=== PATIENT | female | born 1960 | race Caucasian/White ===

== ENCOUNTER 2017-08-17 13:56 | Emergency (ER) | payer OTHER, SELFPAY | END 2017-08-17 14:25 | disposition home or self-care (01) | LOC: ERS 13:56 | DX: J01.90 Acute sinusitis, unspecified (principal); J44.9 Chronic obstructive pulmonary disease, unspecified; Z87.891 Personal history of nicotine dependence | CPT/HCPCS: 99283 ==

== ENCOUNTER 2019-10-15 12:20 | Emergency (ER) | payer OTHER, SELFPAY ==
--- NOTE | 2019-10-15 12:57 | RAD ---
RADIOGRAPH CHEST 1 VIEW: DATE: 10/15/2019 HISTORY: 59-year-old female with dyspnea FINDINGS: There is hyperinflation of the lungs, consistent with COPD. There is no evidence of airspace density, cardiomegaly, pulmonary edema, or pneumothorax. The lateral costophrenic angles are not effaced. IMPRESSION: 1) No acute pulmonary findings. 2) emphysema.
[2019-10-15 13:24] LABS: #Basophils 0.1 thou/uL (0.0-0.2); #Eosinphils 0.1 thou/uL (0.0-0.7); #Lymphocytes 2.3 thou/uL (1.20-3.40); #Monocytes 0.8 thou/uL (0.11-0.59); #Neutrophils 7.1 thou/uL (1.40-6.50); %Eosinophils 1.3 % (0.0-10.0); %Lymphocytes 22.3 % (21.0-51.0); %Monocytes 7.4 % (0.0-10.0); %Neutrophils 68.1 % (42.0-75.0); Hemoglobin 13.5 g/dL (12.0-16.0); Mean Corpuscular Hemoglobin 31.6 pg (27.0-31.0); Mean Corpuscular Volume 92.9 fL (78.0-98.0); Mean Platelet Volume 7.7 fL (7.4-10.4); Platelet Count 326 thou/uL (130-400); Red Blood Cell (RBC) Count 4.26 mill/uL (4.20-5.40); White Blood Cell (WBC) Count 10.4 thou/uL (4.8-10.8)
[2019-10-15 13:46] LABS: ALT (SGPT) 12 U/L (8-55); AST (SGOT) 18 U/L (5-34); Albumin 4.5 g/dL (3.5-5.0); Alkaline Phosphatase 61 U/L (40-110); Anion Gap 14 mmol/L (10-20); BUN (Urea Nitrogen) 9 mg/dL (9.8-20.1); Bilirubin, Total 0.3 mg/dL (0.2-1.2); Calc. Creatinine Clearance 0 mL/min (70-130); Calcium 9.2 mg/dL (7.8-10.44); Carbon Dioxide 22 mmol/L (22-29); Chloride 106 mmol/L (98-107); Estimated GFR-MDRD 77; Globulin 2.7 g/dL (2.4-3.5); Glucose 92 mg/dL (70-105); Lipase 4 U/L (8-78); Potassium 3.9 mmol/L (3.5-5.1); Protein, Total 7.2 g/dL (6.0-8.3); Sodium 138 mmol/L (136-145)
[2019-10-15] MEDS ORDERED: Albuterol 200 PUFF (6.7GM INHALER) ONE (13:54)
[2019-10-15] MEDS ORDERED: Magnesium 2 GM/50 ML BAG (IN WATER) ONE (13:55)
[2019-10-15] MEDS ORDERED: hydrOXYzine 25 MG TAB ONE (13:55)
[2019-10-15] MEDS ORDERED: methylPREDNISolone Sod Succ/PF 125 MG/2 ML VIAL ONE (13:55)
[2019-10-15] MEDS ORDERED: Lorazepam 2 MG/ML VIAL ONE (15:16)
== END 2019-10-15 16:04 | disposition home or self-care (01) ==
LOC: ERS 12:20
DX: J44.1 Chronic obstructive pulmonary disease with (acute) exacerbation (principal); F41.9 Anxiety disorder, unspecified; F17.210 Nicotine dependence, cigarettes, uncomplicated; B19.20 Unspecified viral hepatitis C without hepatic coma; Z79.51 Long term (current) use of inhaled steroids
CPT/HCPCS: 36415; 71045; 80053; 83605; 83690; 83880; 84484; 85025; 87040; 93005; 94664; 94760; 96365; 96375; J2060; J2930; J3475

== ENCOUNTER 2020-08-24 01:43 | Observation (INO) | payer OTHER, SELFPAY ==
[2020-08-24] MEDS ORDERED: Promethazine HCl 25 MG/ML VIAL ONE (02:01)
[2020-08-24] MEDS ORDERED: Morphine 4 MG/ML VIAL ONE (02:01)
[2020-08-24 04:44] VITALS: BMI 16.9
[2020-08-24] MEDS ORDERED: Polyethylene Glycol 3350 17 GM Packet PO PRN (09:15)
[2020-08-24] MEDS ORDERED: Fleet Enema 133 ML BOT PR SCH (09:15)
[2020-08-24] MEDS: Sodium Chloride 0.9% 1,000 ML IV SCH ×3 (10:19→22:30)
[2020-08-24] MEDS: Acetaminophen 325 MG TAB PO PRN ×2 (10:19→17:50)
[2020-08-24] MEDS: Morphine 4 MG/ML VIAL SLOW IVP PRN ×3 (10:38→22:31)
[2020-08-24 13:54] LABS: Hemoglobin 11.4 g/dL (12.0-16.0); Mean Corpuscular HGB CONC 31.7 g/dL (32.0-36.0); Mean Corpuscular Hemoglobin 29.4 pg (27.0-31.0); Mean Corpuscular Volume 92.7 fL (78.0-98.0); Platelet Count 350 thou/uL (130-400); RBC Distribution Width 12.3 % (11.5-14.5); Red Blood Cell (RBC) Count 3.89 mill/uL (4.20-5.40); White Blood Cell (WBC) Count 7.1 thou/uL (4.8-10.8)
[2020-08-24 14:17] LABS: Anion Gap 12 mmol/L (10-20); BUN (Urea Nitrogen) 10 mg/dL (9.8-20.1); Calc. Creatinine Clearance 68 mL/min (70-130); Calcium 8.4 mg/dL (7.8-10.44); Carbon Dioxide 24 mmol/L (22-29); Chloride 101 mmol/L (98-107); Glucose 96 mg/dL (70-105); Potassium 3.8 mmol/L (3.5-5.1); Sodium 133 mmol/L (136-145)
[2020-08-24 14:46] LABS: Band 8 % (5-11); Eosinophils 1 % (0-10); Lymphocytes 8 % (21-51); MDiff Complete? YES; Monocytes 7 % (0-10); Neutrophil 76 % (42-75); Platelet Morphology Comment Appears Adequate; Polychromasia SLIGHT = 2-3 cells (100X) (0-2/hpf)
[2020-08-24] MEDS ORDERED: Albuterol 200 PUFF (6.7GM INHALER) INH PRN (16:00)
[2020-08-24] MEDS: Enoxaparin Sodium 40 MG/0.4 ML SYRINGE SC SCH (20:17)
[2020-08-25] MEDS: Acetaminophen 325 MG TAB PO PRN (03:45)
[2020-08-25] MEDS: Morphine 4 MG/ML VIAL SLOW IVP PRN ×3 (04:23→12:30)
[2020-08-25] MEDS: Sodium Chloride 0.9% 1,000 ML IV SCH (06:45)
[2020-08-25] MEDS: Enoxaparin Sodium 40 MG/0.4 ML SYRINGE SC SCH (08:25)
[2020-08-25 09:44] LABS: #Basophils 0.1 thou/uL (0.0-0.2); #Lymphocytes 1.4 thou/uL (1.20-3.40); #Monocytes 0.8 thou/uL (0.11-0.59); #Neutrophils 3.8 thou/uL (1.40-6.50); %Basophils 1.2 % (0.0-1.0); %Eosinophils 0.7 % (0.0-10.0); %Monocytes 13.4 % (0.0-10.0); %Neutrophils 62.8 % (42.0-75.0); Hemoglobin 10.7 g/dL (12.0-16.0); Mean Corpuscular HGB CONC 32.3 g/dL (32.0-36.0); Mean Corpuscular Volume 93.1 fL (78.0-98.0); Mean Platelet Volume 6.8 fL (7.4-10.4); Platelet Count 327 thou/uL (130-400); RBC Distribution Width 12.4 % (11.5-14.5); Red Blood Cell (RBC) Count 3.58 mill/uL (4.20-5.40); White Blood Cell (WBC) Count 6.1 thou/uL (4.8-10.8)
[2020-08-25 10:04] LABS: Anion Gap 11 mmol/L (10-20); BUN (Urea Nitrogen) 9 mg/dL (9.8-20.1); Calc. Creatinine Clearance 80 mL/min (70-130); Calcium 7.6 mg/dL (7.8-10.44); Carbon Dioxide 24 mmol/L (22-29); Chloride 102 mmol/L (98-107); Glucose 90 mg/dL (70-105); Potassium 3.6 mmol/L (3.5-5.1); Sodium 133 mmol/L (136-145)
[2020-08-25 10:46] VITALS: BP 140/77; TEMP 98.6
== END 2020-08-25 15:20 | disposition home or self-care (01) ==
LOC: ERS 01:43 → 2SW 03:13
PROVIDERS: ADMIT Internal Medicine; ATTEND Internal Medicine
DX: C56.9 Malignant neoplasm of unspecified ovary (principal); C78.6 Secondary malignant neoplasm of retroperitoneum and peritoneum; C78.7 Secondary malignant neoplasm of liver and intrahepatic bile duct; C78.00 Secondary malignant neoplasm of unspecified lung; U07.1 COVID-19; J44.9 Chronic obstructive pulmonary disease, unspecified; K21.9 Gastro-esophageal reflux disease without esophagitis; Z79.899 Other long term (current) drug therapy; Z88.6 Allergy status to analgesic agent
CPT/HCPCS: 36415; 80048; 85025; 96372; 96374; 96375; 96376; G0378; J1650; J2270; J2550